=== PATIENT | female | born 1985 | race Two or more races ===

== ENCOUNTER 2025-03-03 16:45 | Emergency (ER) | payer BC, SELFPAY ==
[2025-03-03 16:46] VITALS: BMI 30.9
[2025-03-03 17:00] VITALS: BP 135/86; PULSE 85; RESP 16; TEMP 37.1; O2SAT 98
--- NOTE | 2025-03-03 17:05 | XR_ITS ---
Examination: Foot, left, 3 views Technique: AP, oblique, lateral views foot, 3 views Date and time of exam: March 03, 2025 1723 hours INDICATIONS: Patient fell today with injury to foot, foot pain FINDINGS: No acute fracture No foreign body IMPRESSION: No acute foot fracture
--- NOTE | 2025-03-03 17:05 | XR_ITS ---
EXAMINATION: Ankle, left 3 views . Technique: Ankle AP, oblique, lateral 3 views Date and time of exam: March 03, 2025 at 1723 hours INDICATIONS: Patient fell today with injury to the ankle, ankle pain. FINDINGS: Bimalleolar soft tissue swelling Acute nondisplaced fracture fibular tip No ankle dislocation IMPRESSION: Acute nondisplaced fracture fibular tip
--- NOTE | 2025-03-03 17:38 | PD.EDRME ---
Rapid Medical Screening Exam RME Arrival date/time: 03/03/25 16:45 39-year-old female presents to the emergency department today stating she twisted her left ankle yesterday patient reports swelling and pain to the left foot and ankle Chief Complaint: Ankle/Foot Injury Time Seen by Provider: 03/03/25 18:05 Vital signs: Vital Signs Temperature 98.8 F 03/03/25 17:00 Pulse Rate 85 03/03/25 17:00 Respiratory Rate 16 03/03/25 17:00 Blood Pressure 135/86 H 03/03/25 17:00 Pulse Oximetry (%) 98 03/03/25 17:00 Oxygen Delivery Method Room Air 03/03/25 17:00
--- NOTE | 2025-03-03 19:21 | PD.EDANKLE ---
Lower Extremity Injury RME/HPI General Chief Complaint: Ankle/Foot Injury Stated Complaint: INJURY TO LEFT ANKLE LAST NIGHT Time Seen by Provider: 03/03/25 18:05 Arrival date/time: 03/03/25 16:45 RME / HPI RME / HPI Narrative: 03/03/25 16:45 39-year-old female presents to the emergency department today stating she twisted her left ankle yesterday patient reports swelling and pain to the left foot and ankle. The injury occurred when she stepped off a curb and rolled her left ankle. Related Data Home Medications ?Medication ?Instructions ?Recorded ?Confirmed albuterol sulfate 90 mcg/actuation 90 mcg inhalation PRN PRN Adequate 04/11/23 04/11/23 aerosol inhaler Ventilation omeprazole 20 mg capsule,delayed 20 mg PO QDAY 04/11/23 04/11/23 release Previous Rx's ?Medication ?Instructions ?Recorded ibuprofen 600 mg tablet 600 mg PO Q8HR PRN Pain #30 tabs 08/13/17 ibuprofen 600 mg tablet 600 mg PO Q8H PRN pain #30 tabs 03/03/25 Allergies Allergy/AdvReac Type Severity Reaction Status Date / Time No Known Allergies Allergy Verified 03/03/25 16:48 Review of Systems Review of Systems Systems Reviewed: All systems reviewed, normal except as documented Past Medical History Past Medical History NEUROLOGIC: Negative Neurological Disorders or Seizures CARDIAC: Positive Cardiac Disorders and Edema (bilateral legs occasionally); Negative Congestive Heart Failure RESPIRATORY: Positive Asthma; Negative Chronic Obstructive Pulmonary Disease (COPD) GASTROINTESTINAL: Positive Gastrointestinal Disorders and Hemorrhoids GENITOURINARY: Negative Genitourinary Disorders or Renal Disease REPRODUCTIVE: Positive Previous Pregnancies MUSCULOSKELETAL: Negative Musculoskeletal Disorders ENDOCRINE: Positive Endocrine Disorders (thyroid nodule, drained); Negative Diabetes Mellitus Type 1 or Diabetes Mellitus Type 2 HEMATOLOGIC: Negative Blood Disorders PSYCHO/SOCIAL: Positive Anxiety OTHER HISTORY: Negative Autoimmune Disease, Blood Transfusions, Anesthesia Reactions, Chicken Pox or Cancer Family History FAMILY HISTORY: Positive Family Cardiac Disorders (sister) and Family Gastrointestinal Problems (mom) Surgical History SURGICAL: Positive Tubal Ligation Social History SMOKING STATUS: Never smoker ED Exam Narrative Physical exam: A&O, afebrile and non-toxic appearing 39-year-old female, no acute distress. No wheezing or shortness of breath is noted. RRR, left lower extremity with tenderness to the distal tibia and distal fibula. Positive tenderness to the proximal metatarsals/tarsals of the left foot. Significant swelling of the left lower leg. CMS intact distally. Moves all extremities well. Course Course Course Narrative: Patient was given ibuprofen 600 mg p.o. XR left foot reveals: No acute fracture or dislocation. XR left ankle reveals: Distal fibula avulsion fracture, per radiologist. Patient was placed in a short leg posterior with stirrup splint and fitted with a pair of crutches. Quality Measures none Orders Category Date Time Status XR ankle comp LT min 3V Stat Exams 03/03/25 17:05 Completed XR foot comp LT min 3V Stat Exams 03/03/25 17:05 Completed Vital Signs Vital signs: Vital Signs Temperature 98.8 F 03/03/25 17:00 Pulse Rate 85 03/03/25 17:00 Respiratory Rate 16 03/03/25 17:00 Blood Pressure 135/86 H 03/03/25 17:00 Pulse Oximetry (%) 98 03/03/25 17:00 Oxygen Delivery Method Room Air 03/03/25 17:00 PROCEDURES: Procedure Comment Posterior short leg with stirrup splint applied and patient fitted with a pair of crutches. Extremity Injury, Lower MDM Narrative MDM Narrative:: Symptoms, exam and diagnostic studies are consistent with: Left distal fibula fracture. Patient was discharged home in stable condition. Patient/family advised to follow-up with their PCP in 24-48 hours. Encouraged to return to the ED for any new or worsening symptoms. Patient data External records reviewed:: None Clinical information provided by:: patient Social determinants that could affect healthcare access:: none Patient has the following chronic illnesses:: N/A How is presenting disease/condition affected by chronic disease/condition?: no chronic disease Evaluation data The following diagnostics were reviewed and interpreted by me:: radiology exam(s) Lab and/or radiology exams considered but not ordered:: N/A Interpretation Summary: As noted above Medications / Prescriptions Medications or Prescriptions considered but not ordered:: N/A Medication administrations:: Motrin 600 mg p.o. Consultations Consultation(s) initiated? (list below): No Diagnosis Extremity Injury, Lower Differential Diagnosis: ankle sprain and strain, ankle fracture and other (Foot fracture) Most likely diagnosis given after review of the tests above:: Left distal fibula fracture Admission Indicated Admission indicated?: not indicated Admission Request Was there a request for admission?: No Admission Attestation Admission request attestation: Patient is stable for discharge Disposition Plan Disposition Plan: Discharge Discharge Attestation Discharge Attestation: The patient and all family members were given an opportunity to ask questions and understood the discharge instructions. Discharge instructions specifically effects, indications for sooner follow up or return to the emergency department, and the expected course of current diagnosis. Patient condition: Stable Discharge Plan Plan Patient Disposition: HOME (Self Care) Discharge Disposition comment: Stable and improved Prescriptions/Referrals Prescriptions/Med Rec: New ibuprofen 600 mg tablet 600 mg PO Q8H PRN (Reason: pain) Qty: 30 0RF No Action ibuprofen 600 MG tablet 600 mg PO Q8HR PRN (Reason: Pain) Qty: 30 0RF omeprazole 20 mg capsule,delayed release(DR/EC) 20 mg PO QDAY albuterol sulfate 90 mcg/actuation HFA aerosol inhaler 90 mcg INHALATION PRN PRN (Reason: Adequate Ventilation) Patient Comments: INHALE 2 PUFFS INTO THE LUNGS EVERY 4 HOURS NEEDED FOR 30 DAYS Referrals: No Primary/Family,Physician [Primary Care Provider] - In 1 week Problem List Clinical Impression: Ankle fracture Patient/Caregiver Discharge Instructions Education Materials: ED Fracture, Lower Extremity Additional Instructions: Ice and elevate the left lower extremity. Do not place any weight on the splint, using the crutches at all times. You may be able to change to a cam walker. Discussed this with your primary care physician. Follow-up with your primary care physician in 24 to 48 hours. Return to the ED for any new or worsening symptoms. Print Language: Serbian Stand Alone Forms: An Award Info., Work/School Release, Patient Portal Info Letter PA/SUNITA Supervising Physician PA/SUNITA Supervising Physician: Dr. Ibarra
[2025-03-03] MEDS: IBUPROFEN TAB 600 MG TABLET PO (19:33)
[2025-03-03 20:19] VITALS: RESP 18
== END 2025-03-03 20:20 | disposition home or self-care (01) ==
PROVIDERS: Emergency Provider Family Medicine
DX: S82.892A Other fracture of left lower leg, initial encounter for closed fracture (principal); X50.1XXA Overexertion from prolonged static or awkward postures, initial encounter
CPT/HCPCS: 29515; 73610; 73630; 99284; A9270